=== PATIENT | female | born 1940 | race Two or more races ===

== ENCOUNTER 2021-11-05 09:46 | Outpatient (CLI) | payer OTHER ==
[~2021-11-05 09:46] MED LIST: ATENOLOL50 MG; FLEXERIL10 MG; NEURONTIN600 MG; PLAVIX75 MG; SYNTHROID112 MCG; ZOCOR40 MG
== END 2021-11-05 09:47 | disposition home or self-care (01) ==
LOC: SONOGRAMA 09:46
PROVIDERS: ATTEND Pathology Anatomic Pathology
DX: E04.1 Nontoxic single thyroid nodule (principal)

== ENCOUNTER 2022-09-16 12:36 | Outpatient (CLI) | payer OTHER | END 2022-09-16 12:41 | disposition home or self-care (01) | LOC: SONOGRAMA 12:36 | PROVIDERS: ATTEND Pathology Anatomic Pathology & Clinical Pathology | DX: D34 Benign neoplasm of thyroid gland (principal); E04.9 Nontoxic goiter, unspecified; E06.5 Other chronic thyroiditis ==

== ENCOUNTER 2024-09-06 09:43 | Outpatient (CLI) | payer OTHER | END 2024-09-06 09:46 | disposition home or self-care (01) | LOC: SONOGRAMA 09:43 | PROVIDERS: ATTEND Pathology Anatomic Pathology & Clinical Pathology | DX: D34 Benign neoplasm of thyroid gland (principal); E06.3 Autoimmune thyroiditis; E04.2 Nontoxic multinodular goiter ==